=== PATIENT | male | born 1950 | race Caucasian/White ===

== ENCOUNTER → 2023-06-20 12:47 | Outpatient (REF) | payer MEDICARE, OTHER, SELFPAY | LOC: DHCBC MAIN 12:47 | PROVIDERS: ATTENDING PHYSICIAN Internal Medicine Cardiovascular Disease; FAMILY PHYSICIAN Family Medicine | DX: I25.10 Atherosclerotic heart disease of native coronary artery without angina pectoris (principal) | CPT/HCPCS: 93306 ==

== ENCOUNTER 2023-08-06 14:41 | Emergency (ER) | payer MEDICARE, OTHER, SELFPAY ==
[2023-08-06 14:55] VITALS: BP 134/76
[2023-08-06 14:58] VITALS: BMI 37.5
--- NOTE | 2023-08-06 15:59 | ED.GENMED ---
History of Present Illness
General
Chief Complaint: Back Pain
Source: patient
Time Seen by Provider: 08/06/23 15:39
Travel History
Have you had any contact with someone who has COVID-19?: No
Do you have any symptoms of coronavirus? Fever > 100 degrees, chills, cough, shortness of breath, sore throat, loss of taste or smell, muscle aches, or headache?: No
History of Present Illness
History of Present Illness:
73-year-old male with past medical history of atrial fibrillation, hypertension, CAD and status post pacemaker placement presenting to the emergency department for evaluation after he had a fall about 2 weeks ago, seen in this emergency department,
but due to continued right-sided back pain came back to the ER today for further evaluation. Patient notes that they x-rayed his chest and wrist and does not believe his back was hurting him as much at the time. He states pain is mainly along the
right lower back and will travel down his right leg sometimes sharp shooting sensation. Currently patient states his pain is much improved while laying down and at rest. He denies any bladder or bowel incontinence, saddle anesthesia, focal
weakness or numbness, long-term corticosteroid use, fevers or any other concerns
Past History
Past History
ED Past Medical History: CAD, Valvular disease and Other (Aortic valve replacement, atrial flutter, atrial fibrillation, hypertension, BPH)
ED Past Surgical History: Cardiac
Social History
Tobacco: Former smoker
Alcohol: None
Drug: None
Personal:
Living: with family
Employment: Other
Family History
Family History: Hypertension
Review of Systems
Review of Systems
All Other Systems: ROS reviewed and negative except as documented in HPI and ROS
Phy Exam
Physical Exam
Physical Exam:
GENERAL: Alert , in no apparent distress
EYE: clear conjunctiva b/l
NECK: Supple
ENT: mmm.
CARDIAC: Regular rate and rhythm .
LUNGS: Clear breath sounds bilaterally, no acute respiratory distress, no wheezes/rales/rhonchi
ABDOMEN: Soft, without focal tenderness, no r/g, no cvat
BACK: limited range of motion 2/2 pain, no focal tenderness, no midline bony tenderness, no rashes
NEUROLOGICAL: Alert and oriented, no focal neuro deficits. , sensation grossly intact and equal to light touch bilateral lower extremities
SKIN: Warm and dry, skin intact.
MUSCULOSKELETAL: No edema, well perfused. EHL intact bilaterally
PSYCH: Normal and appropriate interaction.
Scores
Heart Failure Risk
Heart Failure Risk Score: Not Applicable
Heart Score for Chest Pain Patients
STEMI patient?: Not applicable
Withdrawal Assessment of Alcohol
Withdrawal Assessment Completed?: Not applicable
Course
Orders/Labs/Results
Orders:
Orders
08/06/23 15:53
CR Lumbar Spine Comp Min 4 Vw* Urgent
Comment:
Reason For Exam: right sided lower back pain
08/06/23 17:05
Urinalysis Reflex To Culture Urgent
Date Specimen was Collected: 08/06/23
Time Specimen was Collected: 17:04
Urine Microscopic Reflex Cult Urgent
08/06/23 17:39
Baclofen [Lioresal] 10 mg PO NOW STA
Abnormal Lab Results
08/06/23
17:05
Ur Occult Blood Reflex Trace A
(Negative)
Leukocyte Esterase Rfl Trace A
(Negative)
Urine Bacteria (Reflex) Few A
(Negative)
Vital Signs
Initial and Last Documented VS:
Initial Vital Signs
Temp Pulse Resp BP Pulse Ox
98.3 F 56 18 134/76 94
08/06/23 14:55 08/06/23 14:55 08/06/23 14:55 08/06/23 14:55 08/06/23 14:55
Last Documented Vital Signs
Temp Pulse Resp BP Pulse Ox
98.3 F 58 18 128/68 94
08/06/23 14:55 08/06/23 18:35 08/06/23 18:35 08/06/23 18:35 08/06/23 18:35
MDM/Problems Addressed
Differential Diagnosis Includes:
Lumbar strain, contusion, sciatica, compression fracture
MDM/Problems Addressed:
73-year-old male presenting to the emergency department for evaluation of right-sided lower back pain that is been ongoing since a fall about 2 weeks ago. On record review patient came to this emergency department on July 07 so this fall occurred
almost a month ago. No x-rays were done of the lower back. he has no acute neurologic signs or symptoms today. He does note that he uses a walker at home to help him ambulate. Will order x-ray for further evaluation. Reassessment following
*Radiology
Radiology exam reviewed: preliminary read by ED provider (Significant degenerative changes with possible compression fracture at L3)
*Pulse Oximetry
Patient hypoxic: no
*Critical Care Note
Total Time (30-74mins, 75-104mins- exclusive of procedures): Not Applicable
Data Reviewed
Review of Other/Old Records Reveals: Records
Source: patient
Patient Management
Escalation/DeEscalation of care consider admission/obs:
Patient's x-ray shows significant degenerative changes with possible compression fracture at L3. There is also significant degeneration at L5. Patient's caregiver is now at the bedside and stating that over the last few weeks patient has had a
foul smell and erythema to the glans penis and notes that he is not circumcised and is concerned for infection. Due to patient being in hallway I am unable to evaluate the area but will treat for balanitis with topical clotrimazole. Encourage
close urology follow-up. Baclofen prescription given. Patient will follow-up with primary care provider.
ED Attending Note
-
Portions of this chart may have been created with voice recognition software.� Occasional wrong word or��sound alike� substitutions may have occurred due to the inherent limitations of voice recognition software.
Discharge Plan
Departure
Patient Disposition: Home (Routine Discharge)
Date of Disposition: 08/06/23
Time of Disposition: 17:39
Patient with high blood pressure during this ER visit?: No
Discharge Problem:
Low back pain
Instructions: Low Back Pain (DC)
Prescriptions:
New
baclofen 10 mg tablet
10 mg PO BID PRN (Reason: muscle spasm) Qty: 8 0RF
clotrimazole 1 % cream
1 applic topical BID 28 Days Qty: 30 0RF
No Action
hydrochlorothiazide 25 MG tablet
12.5 mg PO DAILY
multivitamin [Daily Vitamin] 1 EACH tablet
1 tab PO DAILY
metoprolol succinate 100 MG tablet extended release 24 hr
100 mg PO DAILY
tamsulosin 0.4 MG capsule
0.4 mg PO DAILY
warfarin [Jantoven] 5 MG tablet
7.5 mg PO TUFR
clopidogrel 75 MG tablet
75 mg PO DAILY Qty: 90 5RF
atorvastatin 40 MG tablet
40 mg PO QPM Qty: 90 10RF
nitroglycerin 0.4 MG tablet, sublingual
0.4 mg sublingual [id number] PRN (Reason: chest pain) Qty: 25 5RF
enalapril maleate 10 MG tablet
10 mg PO DAILY Qty: 0 0RF
aspirin 81 MG tablet,delayed release (DR/EC)
81 mg PO DAILY Qty: 0 0RF
Rx Instructions:
Stop After INR greater than 2.0
warfarin [Jantoven] 5 MG tablet
5 mg PO SUMOWETHSA Qty: 0 0RF
Rx Instructions:
Take double your dose tonight 07/14
Referrals:
Darlene Brooks MD [Family Provider] -
Interventions
Interventions:
*Nursing Disposition Last Done: 08/06/23 18:37
ED-Musculoskeletal Assessment Last Done: 08/06/23 14:58
Discharge Date and Time
Discharge Date/Time: 08/06/23 18:37
Print Language: GABONESE
[2023-08-06 17:15] LABS: Urine Albumin Negative (Neg - Trace); Urine Bilirubin Negative (Negative); Urine Character Clear (Clear); Urine Color Yellow; Urine Glucose Negative (Negative); Urine Ketone Negative (Negative); Urine Leukocyte Trace (Negative); Urine Nitrite Negative (Negative); Urine Occult Blood Trace (Negative); Urine Urobilinogen Negative (Neg - 1+)
[2023-08-06 17:21] LABS: Urine Bacteria Few (Negative); Urine Red Blood Cell 0-2 /HPF (0-2)
[2023-08-06] MEDS: LIORESAL 10 MG PO (18:01)
[2023-08-06 18:35] VITALS: BP 128/68
== END 2023-08-06 18:37 | disposition home or self-care (01) ==
LOC: EMR 14:41
PROVIDERS: Physician Assistant Medical; EMERGENCY PHYSICIAN Emergency Medicine; FAMILY PHYSICIAN Family Medicine
DX: M54.50 Low back pain, unspecified (principal); I48.91 Unspecified atrial fibrillation; I10 Essential (primary) hypertension; I25.10 Atherosclerotic heart disease of native coronary artery without angina pectoris; Z95.0 Presence of cardiac pacemaker; I38 Endocarditis, valve unspecified; I48.92 Unspecified atrial flutter; N40.0 Benign prostatic hyperplasia without lower urinary tract symptoms; Z95.2 Presence of prosthetic heart valve
CPT/HCPCS: 99283; 72110; 81003; 81015

== ENCOUNTER → 2023-10-23 14:29 | Outpatient (REF) | payer MEDICARE, OTHER, SELFPAY ==
[2023-10-23 15:06] LABS: % Basophils 0.6 % (0-2); % Eosinophils 3.3 % (0-6); % Immature Granulocytes 0.2 % (0-0.5); % Lymphocytes 12.5 % (20.5-51.1); % Monocytes 12.1 % (1.7-9.3); % Neutrophils 71.3 % (42.2-75.2); Absolute Eosinophils 0.2 10^3/uL (0-0.7); Absolute Lymphocytes 0.7 10^3/uL (1.2-3.4); Absolute Monocytes 0.6 10^3/uL (0.1-0.6); Absolute Neutrophils 3.7 10^3/uL (1.4-6.5); Hematocrit 41.6 % (39.0-52.0); Hemoglobin 13.8 g/dL (13.0-18.0); Mean Corp Hgb Conc. 33.2 g/dL (33.0-37.0); Mean Corpuscular Hgb 29.4 pg (27.0-31.0); Mean Corpuscular Volume 88.5 fL (80.0-94.0); Mean Platelet Volume 9.7 fL (7.4-10.4); Nucleated Red Blood Cells % 0 % (-); Platelet Count 158 10^3/uL (130-400); Red Cell Dist. Width 15.2 % (11.5-14.5); White Blood Cell Count 5.2 10^3/uL (4.8-10.8)
[2023-10-23 15:22] LABS: ALT (SGPT) 43 U/L (0-50); AST (SGOT) 48 U/L (17-59); Albumin 4.4 g/dl (3.5-5.0); Alkaline Phosphatase 83 U/L (38-126); Blood Urea Nitrogen 54 mg/dl (9-20); Calcium 9.3 mg/dl (8.4-10.2); Carbon Dioxide 19 mmol/L (22-30); Chloride 108 mmol/L (98-107); Glucose 103 mg/dl (70-99); Potassium 5.3 mmol/L (3.5-5.1); Sodium 140 mmol/L (135-145); eGFR 52.74
== END ==
LOC: REG 14:29
PROVIDERS: ATTENDING PHYSICIAN Physician Assistant; FAMILY PHYSICIAN Family Medicine; REFERRING PHYSICIAN Internal Medicine Cardiovascular Disease
DX: I95.9 Hypotension, unspecified (principal); R42 Dizziness and giddiness; R00.1 Bradycardia, unspecified
CPT/HCPCS: 36415; 80053; 85025

== ENCOUNTER → 2023-11-15 13:04 | Outpatient (REF) | payer MEDICARE, OTHER, SELFPAY | LOC: RCS 13:04 | PROVIDERS: ATTENDING PHYSICIAN Internal Medicine Cardiovascular Disease; FAMILY PHYSICIAN Family Medicine | DX: I50.20 Unspecified systolic (congestive) heart failure (principal); I48.0 Paroxysmal atrial fibrillation; I25.119 Atherosclerotic heart disease of native coronary artery with unspecified angina pectoris; M25.562 Pain in left knee | CPT/HCPCS: 73564; 93307; Q9957 ==

== ENCOUNTER 2023-12-22 10:52 | Day surgery (SDC) | payer MEDICARE, OTHER, SELFPAY ==
[2023-12-06 13:39] VITALS: BMI 36.0
[2023-12-22] VITALS (14 sets, daily range): BP systolic 101–136; BP diastolic 56–74; BMI 33.7
[2023-12-22] MEDS: VANCOCIN 300 ML IV (12:57)
[2023-12-22] MEDS: VANCOCIN 300 MG IV (12:57)
[2023-12-22 14:14] LABS: INR 1.79; PT 20.7 Sec (11.4-14.6)
--- NOTE | 2023-12-22 17:07 | ITS.CL.ICD ---
Addendum entered and electronically signed by Claudio Castaneda MD 01/16/24 14:13:
-
Addendum: I was asked to comment on the nature of the patient's cardiomyopathy. The patient has had a prior mechanical aortic valve replacement. He has had an LAD stent placed for coronary artery disease with symptoms. He has had a recent Cardiac
stress PET scan revealing no evidence of infarction or ischemia. The left ventricle is dilated. The patient has a dilated nonischemic cardiomyopathy. The nature of the etiology of the nonischemic cardiomyopathy is uncertain and might be related
to valvular heart disease but other etiologies are possible.
Addendum entered and electronically signed by Claudio Castaneda MD 12/23/23 08:30:
Total IV contrast 45 mL including left upper extremity venogram and coronary sinus venography.
Original Note:
Hygiene Coordinator - ICD
Implantable Cardioverter Defibrillator
Procedure Report:
Date of Procedure: December 22, 2023.
Procedures: Upgrade from a dual chamber pacemaker to a dual chamber ICD. Unsuccessful resynchronization lead placement.
Indication: Primary prevention ICD and sick sinus syndrome. Heart failure class 2 to 3. The patient's life expectancy exceeds one year. The patient was on maximally tolerated guideline directed therapy. Paroxysmal AFib. 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
a LAFB and just over 40% RV apical pacing.
Implanting physician: Claudio Castaneda M.D.
Implants:
Pulse Generator: Medtronic; Model# [id number]; Serial# [id number].
Ventricular Lead: Medtronic; Model# 6935M-62cm; Serial# [id number].
Retained RA lead (placed 09/16/2014): Medtronic; Model# 5076-52cm; Serial# [id number].
Capped/reusable RV pacing lead (placed 09/16/2014): RV Lead: Medtronic; Model# 5076-58cm; Serial# [id number].
Explanted pacemaker pulse generator (placed 09/16/2014): Medtronic; Model# [id number]; Serial# [id number].
Technique: A time out was performed. A 10 mL left upper extremity venogram demonstrated a patent left axiliary, cephalic and subclavian veins. The procedure site was identified. The patient was anesthetized by the anesthesia service. Preoperative
vancomycin and aztreonam was administered. The patient was prepped and draped in the usual fashion. Local anesthetic was applied to the left prepectoral subcutaneous tissue. A 3 inch incision was made along the left deltopectoral groove. Dissection
was carried to the fascia. The left cephalic vein was easily isolated and proximal and distal control with 2-0 Vicryl suture. Using a micropuncture needle to access the cephalic vein under direct visualization a wire was advanced into the central
circulation. A 9 Fr introducer was placed to allow a second 0.35 J wires to be advanced. The leads were introduced with hemostatic peel away introducer sheaths. The ventricular lead was placed at the right ventricular mid septum. The ventricular
lead was secured to the pectoralis muscle and fascia with two 0-silk sutures. The CS was cannulated with an Attain MP catheter and a lateral vein was found but the thresholds were above 5 Volts. No other target was found. A conduction lead was
advanced through a VISup His delivery catheter ([id number]) but successful left bundle area capture could not be achieved. The patient's blood pressure was requiring additional support and I felt the risks to the patient of continued efforts of
achieving conduction pacing exceed the potential benefits. I elected to move to a dual chamber ICD. The pacer pocket was entered from the new incision and the pacemaker was explanted. During removal of the pacemaker a pocket was created for the ICD.
The RV pacing lead was capped and secured with 0-silk sutures. 8 volt pacing did not capture the diaphragm. The leads were appropriately attached to the device. The pocket was irrigated with antibiotic solution. The device and leads were placed in
the pocket. A figure of 8 suture with Vicryl was required to control brisk cephalic vein back bleeding. A CareSimplytronic Tyrx absorbable antibiotic envelope (Ref [id number]; Lot [id number]). The incision was closed in three layers with absorbable suture.
Steri-strips and an Aquacel dressing were placed. Estimated blood loss was 75 ml all from cephalic vein back bleeding. There were no complications. Fluoroscopy: 13.9 minutes and DAP 10.8 GyCM2. The device was then interrogated after skin closure.
Defibrillation threshold testing was not performed.
Observation: PAF confirmed. The patient arrived in AFib/Flutter and converted to sinus near the end of the procedure.
Device Testing:
RA lead: sinus P: 0.4 and AFib about 0.4 mV; Threshold: 1.5 V @ 0.4 ms; Impedance: 438 ohms.
RV lead: R: 5.4 mV; Threshold: 0.5 V @ 0.4 ms; Impedance: 532 ohms.
Final Programming: Tachy: VT/VF 188 bpm; Tony: AAI to DDD (MVP) 50-130 bpm,
Conclusions: Uncomplicated upgrade from a dual chamber pacemaker to a dual chamber ICD. Unsuccessful resynchronization lead placement.
Recommendations: Routine post ICD care.
cc: Carol Harvey MD and Darlene Brooks MD.
[2023-12-22] MEDS: LASIX 20 MG IV (17:53)
[2023-12-22] MEDS: FLUSH (NSS) 1 FLUSH IV (17:54)
--- NOTE | 2023-12-22 18:01 | PTCARENOTE ---
patient arrived from [employer], very drowsy but easily aroused, able to answer all questions appropriately. LCW intact, pressure dsg. intact with immobilizer in place. monitor shows paced rhythmn, VSS. took off nonrebreather mask and replaced with
4LNC, o2 sat remains at 100%. 20 IV lasix given as ordered.
[2023-12-22] MEDS: LIPITOR 40 MG PO (18:42)
[2023-12-22] MEDS: COUMADIN 5 MG PO (18:42)
[2023-12-22] MEDS: VANCOCIN 200 IV (21:28)
[2023-12-22] MEDS: TYLENOL 650 MG PO (23:34)
[2023-12-23] VITALS (7 sets, daily range): BP systolic 91–120; BP diastolic 53–72
[2023-12-23] MEDS: TYLENOL 650 MG PO ×2 (04:22→09:25)
[2023-12-23 04:53] LABS: Hematocrit 40.3 % (39.0-52.0); Hemoglobin 13.3 g/dL (13.0-18.0); Mean Corpuscular Hgb 29.9 pg (27.0-31.0); Mean Corpuscular Volume 90.6 fL (80.0-94.0); Mean Platelet Volume 9.2 fL (7.4-10.4); Platelet Count 149 10^3/uL (130-400); Red Blood Cell Count 4.45 10^6/uL (4.70-6.10); Red Cell Dist. Width 14.3 % (11.5-14.5); White Blood Cell Count 9.3 10^3/uL (4.8-10.8)
[2023-12-23 05:05] LABS: INR 1.59; PT 18.8 Sec (11.4-14.6)
[2023-12-23 05:16] LABS: Blood Urea Nitrogen 22 mg/dl (9-20); Calcium 8.9 mg/dl (8.4-10.2); Carbon Dioxide 23 mmol/L (22-30); Chloride 107 mmol/L (98-107); Estimated Creatinine Clearance 91 ml/min; Glucose 101 mg/dl (70-99); Potassium 4.5 mmol/L (3.5-5.1); Sodium 140 mmol/L (135-145); eGFR > 60.00
--- NOTE | 2023-12-23 08:19 | PTCARENOTE ---
Pt's urinal spilled in bed, mod amt urine
[2023-12-23] MEDS: FLOMAX 0.4 MG PO (08:39)
[2023-12-23] MEDS: LOW STRENGTH ASPIRIN 81 MG PO (08:40)
--- NOTE | 2023-12-23 08:53 | W.PN.CD ---
Addendum entered and electronically signed by Claudio Castaneda MD 12/23/23 09:57:
I saw and examined the patient.
The SUPERVISORY TRAINING SPECIALIST's note was reviewed and I agree with the note.
Comment: ICD site is perfect. Pressure dressing reapplied and plan 24 more hours. CXR/EKG good. Ready for home. Meds advanced. More med adjustment as OP.
Original Note:
Today's Communication / Plan
-
Pressure dressing for 24 more hours- Dr. Castaneda to redress this AM
Home today with addition of Aldactone 12.5 mg daily and Lasix 20 mg MWF
INR and BMP in one week
Incision check visit arranged
Impression / Plan
-
s/p upgrade from a dual chamber pacemaker to a dual chamber ICD (Unsuccessful resynchronization lead placement):
-left chest site with intact pressure dressing- Dr. Castaneda to redress this AM- leave on for 24 more hours
-we reviewed activity restrictions and site care, follow-up in office arranged
Mechanical AVR:
-INR subtherapeutic since he held 2 doses warfarin for procedure
-continue warfarin 5 mg daily and repeat INR in 1 about 1 week
HFrEF: chronic
-he received a dose of IV Lasix
-continue Entresto and metoprolol
-add Lasix 20 mg MWF and Aldactone 12.5 mg daily
-labs in about 1 week
PAF:
-in SR, on warfarin
-continue metoprolol
CAD:
-stable
-continue ASA, statin, and BB
Subjective:
-denies SOB. Not much pain to procedure site. Had issue with urinating last night s/p anesthesia, but now resolved.
Physical Exam
Vital Signs/Labs
Vital Signs
Temp Pulse Resp BP Pulse Ox
97.8 F 60 16 108/64 98
12/23/23 07:01 12/23/23 04:11 12/23/23 07:01 12/23/23 04:11 12/23/23 07:01
12/22/23 12/23/23 12/24/23
06:59 06:59 06:59
Actual Weight 122.47 kg
12/23/23 04:17
12/23/23 04:17
PT 18.8 Sec (11.4-14.6) H 12/23/23 04:17
INR 1.59 12/23/23 04:17
Physical Exam
Constitutional: No acute distress
EENT: Anicteric
Cardiovascular: Rhythm & rate is regular and Pedal edema present (mild BLE edema)
Respiratory: Respiratory effort normal and Lungs clear to auscul.
Neuro/Psych: AO x 3
Other: Skin (left chest site dressing intact)
Data Reviewed
-
Date of Service: December 23, 2023
EKG: Other (Apaced PVC's)
X-Ray/CT/US/MRI/NUC/PET: Report Reviewed by me (no pneumo)
Labs: Labs Reviewed by me
[2023-12-23] MEDS: PERCOCET 5/325 1 TABLET PO (10:14)
--- NOTE | 2023-12-23 10:20 | PTCARENOTE ---
L cw pressure dressing D+I. Dr Castaneda came to see Pt. Pt c/o pain, med with Tylenol 650 mg with no relief. Pt med with Percocet 1 tab po as ordered for mod pain.
--- NOTE | 2023-12-23 12:46 | W.DS.TRANS ---
DC Summary - Cutter Hand
-
Discharge Instructions:
Sleep Apnea Risk Intermediate
Discharge Diagnosis/Procedures Cardiac device upgrade from pacemaker to ICD,
HFrEF
Diet Low Cholesterol,2 Gram Sodium,Restrict fluids to
48 oz,Low Fat
Activity No strenuous activity
Additional Activity See attached instructions
Driving Restrictions No driving for 1 week
Bathing Restrictions OK to Shower
Blood Work INR and BMP 5-6 days- slip to be given at d/c.
Sent to [place] [facility]- if it needs to go
elsewhere please call cardiology office.
Specialty Instructions Weigh Daily
Instructions:
Stand-Alone Forms: DC Inst - Implanted Device
Changes to Home Medications: Yes
Discharge Medications:
DC Medications w/original date entered in [employer]
metoprolol succinate 100 mg tablet,extended release 24 hr 50 mg PO QPM Heart Disease/Condition 07/14/21
nitroglycerin 0.4 mg sublingual tablet 0.4 mg sublingual [id number] PRN chest pain #25 tabs 07/14/21
tamsulosin 0.4 mg capsule 0.4 mg PO QPM 07/14/21
Black Elderberry Gummies 2 tab PO DAILY 12/01/23
acetaminophen 500 mg tablet 1,000 mg PO DAILY 12/01/23
coQ10 (ubiquinol) 100 mg capsule 100 mg PO DAILY 12/01/23
gabapentin 100 mg capsule 100 mg PO PRN PRN pain 12/01/23
melatonin 5 mg tablet 5 mg PO HS PRN sleep 12/01/23
multivitamin with minerals-folic acid 200 mcg chewable tablet (Multivitamin Gummies) 2 tab PO DAILY Supplement 12/01/23
sacubitril 49 mg-valsartan 51 mg tablet (Entresto) 1 tab PO BID Heart Disease/Condition 12/01/23
warfarin 5 mg tablet (Jantoven) 5 mg PO DAILY Blood Clot Prevention/Tx 12/01/23
aspirin 81 mg tablet,delayed release 81 mg PO DAILY Blood Clot Prevention/Tx #0 tabs 12/23/23
atorvastatin 40 mg tablet 40 mg PO QPM High Cholesterol 12/23/23
furosemide 20 mg tablet (Lasix) 20 mg PO .three times per week #12 tabs 12/23/23
spironolactone 25 mg tablet (Aldactone) 12.5 mg (1/2 x 25 mg) PO DAILY #15 tabs 12/23/23
Home Medication Changes
added aldactone and furosemide
Pending Results: No
--- NOTE | 2023-12-23 13:01 | PTCARENOTE ---
Pt had lunch, he reports feeling much better now, denies lightheadedness.
--- NOTE | 2023-12-23 15:25 | PTCARENOTE ---
Pt walking around room with quad cane, denies any further lightheadedness or dizziness. Pt discharge instructions reviewed with him and his caregiver. Pt discharged to home.
== END 2023-12-23 15:35 | disposition home or self-care (01) ==
LOC: CATH 10:52
PROVIDERS: ATTENDING PHYSICIAN Internal Medicine Cardiovascular Disease; FAMILY PHYSICIAN Family Medicine
DX: I50.22 Chronic systolic (congestive) heart failure (principal); I11.0 Hypertensive heart disease with heart failure; I42.0 Dilated cardiomyopathy; I48.19 Other persistent atrial fibrillation; I49.5 Sick sinus syndrome; I48.92 Unspecified atrial flutter; I25.10 Atherosclerotic heart disease of native coronary artery without angina pectoris; E78.5 Hyperlipidemia, unspecified; E66.9 Obesity, unspecified; Z68.36 Body mass index [BMI] 36.0-36.9, adult; N40.0 Benign prostatic hyperplasia without lower urinary tract symptoms; M19.90 Unspecified osteoarthritis, unspecified site; M48.00 Spinal stenosis, site unspecified; M54.10 Radiculopathy, site unspecified; Z95.2 Presence of prosthetic heart valve; Z79.899 Other long term (current) drug therapy; Z95.0 Presence of cardiac pacemaker; I45.2 Bifascicular block; Z87.891 Personal history of nicotine dependence; Z88.0 Allergy status to penicillin; Z95.5 Presence of coronary angioplasty implant and graft; Z79.82 Long term (current) use of aspirin; Z79.01 Long term (current) use of anticoagulants
CPT/HCPCS: 33249; 33233; 71045; 80048; 85027; 85610; 93005; C1721; C1769; C1777; C1887; C1892; C1898; C1900; Q9967

== ENCOUNTER 2024-01-04 01:58 | Emergency (ER) | payer MEDICARE, OTHER, SELFPAY ==
[2024-01-04 02:01] VITALS: BP 120/67
--- NOTE | 2024-01-04 02:13 | ED.GENMED ---
History of Present Illness
<BHAVANI Perrin - Last Filed: 01/04/24 06:33>
General
Chief Complaint: Urinary Symptoms
Source: patient
Time Seen by Provider: 01/04/24 02:13
Nursing documentation reviewed up to this point in time: agreed with except (Patient has not urinated since 2 PM yesterday)
History of Present Illness
History of Present Illness:
This is a pleasant 73-year-old male with a past medical history of CAD, A-fib, AICD implant, aortic valve replacement, HTN, BPH, anxiety, presents to the emergency department for urinary retention x 12 hours. Patient states that as of 2 PM
yesterday he suddenly stopped being able to urinate which has led to suprapubic fullness and tenderness to palpation. He admits to 1 previous episode of urinary retention on 12/22/2023 shortly after his a ICD placement to which symptoms resolved
after straight urinary catheterization. Patient admits to postoperative intermittent constipation. He admits to attempting manual disimpaction over the last 3 days to no avail. Patient denies chest pain, shortness of breath, nausea, vomiting,
headache.
Past History
<BHAVANI Perrin - Last Filed: 01/04/24 06:33>
Past History
ED Past Medical History: CAD, Valvular disease and Other (Aortic valve replacement, atrial flutter, atrial fibrillation, hypertension, BPH)
ED Past Surgical History: Cardiac
Social History
Tobacco: Former smoker
Alcohol: None
Drug: None
Personal:
Living: with family
Employment: Other
Family History
Family History: Hypertension
Phy Exam
<BHAVANI Perrin - Last Filed: 01/04/24 06:33>
General Physical Exam
General Presentation: well appearing and no apparent distress
General age: appears stated age
General Skin: warm
General Habitus: elderly and obese
General Mental: alert
General Hydration: appears well hydrated
Eye Exam
Eye Exam: PERRL
Cardiovascular Exam
Cardiovascular Exam: regular rate/rhythm, no edema and normal peripheral pulses
Pulmonary Exam
Pulmonary Exam: lungs clear, no respiratory distress, no rales, no crackles and no cough
Gastrointestinal Exam
Gastrointestinal Exam: soft, non distended, abnormal bowel sounds (Hyperactive) and tender (Suprapubic)
Palpation: left upper quadrant: No tenderness, left lower quadrant: No tenderness, right upper quadrant: No tenderness and right lower quadrant: No tenderness
Neurological Exam
Neurological Exam: alert and oriented x3
Musculoskeletal Exam
Musculoskeletal Exam: full ROM
Skin Exam
Skin Exam: normal color, warm/dry and no rash
Psychiatric Exam
Psychiatric Exam: normal mood/affect
Course
<Biju Muniz, [facility] - Last Filed: 01/04/24 06:33>
Orders/Labs/Results
Orders:
Orders
01/04/24 02:36
Bladder Scan- Treatment ONCE
01/04/24 02:56
Bravo Placement- Treatment ONCE
Reason for insertion: Acute Retention
01/04/24 02:57
CR Obstruct Series W/pa Chest Urgent
Comment:
Reason For Exam: constipation, lower abd pain
01/04/24 04:22
Enema- Treatment ONCE
Type: Milk of Molasses
01/04/24 04:43
Urinalysis Reflex To Culture Urgent
Date Specimen was Collected: 01/04/24
Time Specimen was Collected: 04:19
Urine Microscopic Reflex Cult Urgent
Urine Culture Urgent
RONDA Source: U
Specimen Description:
Date Specimen was Collected: 01/04/24
Time Specimen was Collected: 04:19
01/04/24 05:37
Doxycycline [Vibramycin] 100 mg PO NOW STA
Abnormal Lab Results
01/04/24
04:43
Ur Occult Blood Reflex 4+ A
(Negative)
Urine RBC >100 A /HPF
(0-2)
Urine Bacteria (Reflex) Moderate A
(Negative)
Vital Signs
Initial and Last Documented VS:
Initial Vital Signs
Temp Pulse Resp BP Pulse Ox
98.5 F 71 26 120/67 97
01/04/24 02:01 01/04/24 02:01 01/04/24 02:01 01/04/24 02:01 01/04/24 02:01
Last Documented Vital Signs
Temp Pulse Resp BP Pulse Ox
98.5 F 71 26 120/67 97
01/04/24 02:01 01/04/24 02:01 01/04/24 02:01 01/04/24 02:01 01/04/24 02:01
<Mari Fraire, DO - Last Filed: 01/04/24 06:28>
Orders/Labs/Results
Orders:
Orders
01/04/24 02:36
Bladder Scan- Treatment ONCE
01/04/24 02:56
Bravo Placement- Treatment ONCE
Reason for insertion: Acute Retention
01/04/24 02:57
CR Obstruct Series W/pa Chest Urgent
Comment:
Reason For Exam: constipation, lower abd pain
01/04/24 04:22
Enema- Treatment ONCE
Type: Milk of Molasses
01/04/24 04:43
Urinalysis Reflex To Culture Urgent
Date Specimen was Collected: 01/04/24
Time Specimen was Collected: 04:19
Urine Microscopic Reflex Cult Urgent
Urine Culture Urgent
RONDA Source: U
Specimen Description:
Date Specimen was Collected: 01/04/24
Time Specimen was Collected: 04:19
01/04/24 05:37
Doxycycline [Vibramycin] 100 mg PO NOW STA
Abnormal Lab Results
01/04/24
04:43
Ur Occult Blood Reflex 4+ A
(Negative)
Urine RBC >100 A /HPF
(0-2)
Urine Bacteria (Reflex) Moderate A
(Negative)
Vital Signs
Initial and Last Documented VS:
Initial Vital Signs
Temp Pulse Resp BP Pulse Ox
98.5 F 71 26 120/67 97
01/04/24 02:01 01/04/24 02:01 01/04/24 02:01 01/04/24 02:01 01/04/24 02:01
Last Documented Vital Signs
Temp Pulse Resp BP Pulse Ox
98.5 F 71 26 120/67 97
01/04/24 02:01 01/04/24 02:01 01/04/24 02:01 01/04/24 02:01 01/04/24 02:01
<BHAVANI Perrin - Last Filed: 01/04/24 06:33>
MDM/Problems Addressed
Differential Diagnosis Includes:
Urinary retention due to BPH, constipation, bladder stones
MDM/Problems Addressed:
Obstruction series demonstrated no bladder stones; however, moderate to severe amount of stool was noted in the distal part of rectum and sigmoid colon. This was the likely etiology of the urinary retention due to stool burden pressing on prostate,
thus causing postrenal obstruction.
<Mari Fraire DO - Last Filed: 01/04/24 06:28>
*Radiology
Radiology exam reviewed: preliminary read by ED provider (Obstruction series shows moderate stool within the rectum consistent with fecal impaction. No evidence of obstruction. Clear lung canseco.)
*Pulse Oximetry
Patient hypoxic: no
*Critical Care Note
Total Time (30-74mins, 75-104mins- exclusive of procedures): Not Applicable
ED Attending Note
<BHAVANI Perrin - Last Filed: 01/04/24 06:33>
-
Portions of this chart may have been created with voice recognition software.� Occasional wrong word or��sound alike� substitutions may have occurred due to the inherent limitations of voice recognition software.
<Mari Fraire DO - Last Filed: 01/04/24 06:28>
ED Attending Note
Patient seen and examined by attending physician: Yes
I performed the substantive portion of visit, reviewed & personally made and approve the management plan that is documented in note by myself or JELLY.: Yes
ED Attending Note:
This is a 73-year-old gentleman with history of atrial fibrillation, mechanical aortic valve replacement 2011 chronically maintained on Coumadin, history of chronic heart failure with reduced EF who underwent pacemaker upgrade to biventricular ICD
December 21. He did suffer acute urinary retention postoperatively requiring straight catheterization for what he states was 1000 cc urine output but did not require indwelling Bravo catheter. He has history of BPH chronically maintained on Flomax.
Upon discharge the following day December 22, Lasix 20 mg was added Monday/Monday/Monday along with Aldactone 12.5 mg daily.
He states with dietary changes, low-sodium diet and compliance with fluid restriction he has lost approximately 50 pounds over the past 3 months.
With initiation of diuretics 2 weeks ago patient has had issues with constipation, passing very hard stools and thus far no relief with a dose of prune juice and mineral oil yesterday. He states his last bowel movement was approximately 3 days ago.
This evening however he developed significant suprapubic discomfort with tremendous urinary urge and inability to void since early evening. Symptoms feel very similar to his acute urinary retention postoperatively December 21. He denies flank pain
or back pain, no nausea or vomiting, no fever nor chills. He has had no dysuria nor hematuria.
He does have a urologist but admits to lacking follow-up for at least a year. Prior to December 21, he has had no previous episodes of urinary retention.
GENERAL: 73-year-old obese gentleman appears his stated age, awake and alert, pleasant, appears in no acute distress.
EYE: anicteric
NECK: Supple, nontender, no JVD.
ENT: oral mucosa is moist. No rhinorrhea.
CARDIAC: Regular rate and rhythm. no murmur.
LUNGS: Clear breath sounds bilaterally, no acute respiratory distress, no wheezes/rales/rhonchi
ABDOMEN: Rotund, soft, nondistended, mild to moderate tenderness suprapubic region with palpably mildly distended bladder. No r/g, no cvat. normoactive BS.
NEUROLOGICAL: Alert and oriented x3, no focal neuro deficits.
SKIN: Warm and dry, mildly pale in color, skin intact. No rash.
MUSCULOSKELETAL: No clubbing or cyanosis, trace pretibial edema bilateral lower extremities, peripheral pulses are full and equal b/l. No palpable tenderness.
PSYCH: Normal and appropriate interaction.
Concern for acute urinary retention, concern for constipation. Concern for UTI.
Constipation may be cause for acute urinary retention and patient is certainly at risk for this with history of BPH.
Will check bladder scan and will plan for Bravo catheter to empty the bladder and then we will plan for obstruction series to assess for fecal impaction/constipation.
Will check urinalysis assess for potential UTI.
01/04/2024 0337 AM
Bravo catheter placed by nursing staff without difficulty. Initial output 800 cc dark elinor urine.
Patient reports significant relief of suprapubic discomfort and urinary urgency.
Awaiting obstruction series.
01/04/2024 0422 am
Obstruction series shows moderate stool burden in the rectum consistent with fecal impaction. No evidence obstruction. Clear lung canseco.
Will plan for milk of molasses enema to clear fecal impaction.
01/04/2024 0622 AM
Patient has had success after enema. Has passed a large firm to soft bowel movement.
Overall feeling markedly improved with no further rectal nor suprapubic discomfort/pressure.
Urinalysis shows moderate bacteria but only 3-5 WBCs, not consistent with UTI. Greater than 100 RBCs. He is maintained on Coumadin. No flank pain. Nothing to suggest ureteral stone.
Due to urethral manipulation/Bravo catheter placement patient has been given a one-time dose of doxycycline.
I do suspect that acute urinary retention was related to fecal impaction and now that that is cleared we will plan to DC Bravo catheter and discharge to home with recommendation for follow-up with his urologist, Dr. Hodges.
Continue daily tamsulosin.
Recommend he initiate a daily fiber supplement such as Benefiber, Metamucil for constipation.
Continue fluid restriction but recommend he discontinue furosemide. He had 1 dose left for tomorrow. Recommend he skip this last dose.
Return precautions discussed.
Discharge Plan
Departure
Patient Disposition: Home (Routine Discharge)
Date of Disposition: 01/04/24
Time of Disposition: 06:24
Patient with high blood pressure during this ER visit?: No
Condition: Good
Discharge Problem:
Acute urinary retention, Fecal impaction in rectum
Instructions: Fecal Impaction (DC), Constipation, Adult ED, Urinary retention
Prescriptions:
No Action
metoprolol succinate 100 MG tablet extended release 24 hr
50 mg PO QPM
tamsulosin 0.4 MG capsule
0.4 mg PO QPM
nitroglycerin 0.4 MG tablet, sublingual
0.4 mg sublingual [id number] PRN (Reason: chest pain) Qty: 25 5RF
acetaminophen 500 mg Tablet
1,000 mg PO DAILY
gabapentin 100 mg Capsule
100 mg PO PRN PRN (Reason: pain)
melatonin 5 mg Tablet
5 mg PO HS PRN (Reason: sleep)
multivit with min-folic acid [Multivitamin Gummies] 200 mcg Tablet,Chewable
2 tab PO DAILY
coQ10 (ubiquinol) 100 mg Capsule
100 mg PO DAILY
Entresto 49-51 mg Tablet
1 tab PO BID
Black Elderberry Gummies
2 tab PO DAILY
warfarin [Jantoven] 5 MG tablet
5 mg PO DAILY
atorvastatin 40 MG tablet
40 mg PO QPM
furosemide [Lasix] 20 mg tablet
20 mg PO .three times per week Qty: 12 3RF
Rx Instructions:
Monday, Monday, and Monday
spironolactone [Aldactone] 25 mg tablet
12.5 mg PO DAILY Qty: 15 3RF
aspirin 81 MG tablet,delayed release (/EC)
81 mg PO DAILY Qty: 0 0RF
Referrals:
Franky Hodges MD [Active] - Call in 1-3 days for appt
Darlene Brooks MD [Family Provider] - Call in 1-3 days for appt
Activity Restrictions/Additional Instructions:
Continue your daily fluid restriction but recommend you hold off on that last dose of furosemide that you scheduled for tomorrow.
Continue daily tamsulosin.
For constipation, recommend you start a daily fiber supplement such as Metamucil or Benefiber, continue this on a daily basis.
Follow-up with urologist, Dr. Figueroa, for further evaluation and recommend follow-up with your primary care physician as well.
If urinary retention recurs, prompt return to the ED for further evaluation.
Interventions
Interventions:
*Risk Screen - Suicide Last Done: 01/04/24 02:01
Discharge Date and Time
Print Language: [id number]
[2024-01-04 04:57] LABS: Urine Albumin Trace (Neg - Trace); Urine Bilirubin Negative (Negative); Urine Character Slightly Cloudy (Clear); Urine Color Yellow; Urine Glucose Negative (Negative); Urine Ketone Negative (Negative); Urine Leukocyte Negative (Negative); Urine Nitrite Negative (Negative); Urine Occult Blood 4+ (Negative); Urine Urobilinogen Negative (Neg - 1+)
[2024-01-04 05:27] LABS: Urine Amorphous Seen; Urine Red Blood Cell >100 /HPF (0-2)
[2024-01-04 05:28] LABS: Urine Bacteria Moderate (Negative)
[2024-01-04 06:00] VITALS: BP 118/64
[2024-01-04] MEDS: VIBRAMYCIN 100 MG PO (06:38)
== END 2024-01-04 07:05 | disposition home or self-care (01) ==
LOC: EMR 01:58
PROVIDERS: EMERGENCY PHYSICIAN Emergency Medicine; FAMILY PHYSICIAN Family Medicine
DX: R33.9 Retention of urine, unspecified (principal); K56.41 Fecal impaction; I25.10 Atherosclerotic heart disease of native coronary artery without angina pectoris; I38 Endocarditis, valve unspecified; I48.91 Unspecified atrial fibrillation; I11.0 Hypertensive heart disease with heart failure; I50.9 Heart failure, unspecified; N40.1 Benign prostatic hyperplasia with lower urinary tract symptoms; Z79.01 Long term (current) use of anticoagulants; Z79.899 Other long term (current) drug therapy; Z82.49 Family history of ischemic heart disease and other diseases of the circulatory system; Z87.891 Personal history of nicotine dependence; Z95.2 Presence of prosthetic heart valve; Z95.810 Presence of automatic (implantable) cardiac defibrillator
CPT/HCPCS: 99283; 74022; 81003; 81015; 87086

== ENCOUNTER → 2024-01-22 12:09 | Outpatient (REF) | payer MEDICARE, OTHER, SELFPAY ==
[2024-01-22 14:06] LABS: INR 3.46; PT 34.6 Sec (11.4-14.6)
== END ==
LOC: REG 12:09
PROVIDERS: ATTENDING PHYSICIAN Internal Medicine Cardiovascular Disease; FAMILY PHYSICIAN Family Medicine
DX: I48.0 Paroxysmal atrial fibrillation (principal)
CPT/HCPCS: 36415; 85610

== ENCOUNTER → 2024-02-01 14:35 | Outpatient (REF) | payer MEDICARE, OTHER, SELFPAY ==
[2024-02-01 15:40] LABS: INR 3.13; PT 32.5 Sec (11.4-14.6)
== END ==
LOC: REG 14:35
PROVIDERS: ATTENDING PHYSICIAN Internal Medicine Cardiovascular Disease; FAMILY PHYSICIAN Family Medicine
DX: I48.0 Paroxysmal atrial fibrillation (principal)
CPT/HCPCS: 36415; 85610

== ENCOUNTER → 2024-02-08 13:21 | Outpatient (REF) | payer MEDICARE, OTHER, SELFPAY ==
[2024-02-08 14:25] LABS: INR 2.74; PT 29.4 Sec (11.4-14.6)
== END ==
LOC: REG 13:21
PROVIDERS: ATTENDING PHYSICIAN Internal Medicine Cardiovascular Disease; FAMILY PHYSICIAN Family Medicine
DX: I48.0 Paroxysmal atrial fibrillation (principal)
CPT/HCPCS: 36415; 85610

== ENCOUNTER → 2024-03-08 14:14 | Outpatient (REF) | payer MEDICARE, OTHER, SELFPAY ==
[2024-03-08 16:17] LABS: INR 1.73; PT 20.4 Sec (11.4-14.6)
== END ==
LOC: REG 14:14
PROVIDERS: ATTENDING PHYSICIAN Internal Medicine Cardiovascular Disease
DX: I48.0 Paroxysmal atrial fibrillation (principal)
CPT/HCPCS: 36415; 85610

== ENCOUNTER → 2024-03-13 14:05 | Outpatient (REF) | payer MEDICARE, OTHER, SELFPAY ==
[2024-03-13 14:51] LABS: INR 2.86; PT 30.4 Sec (11.4-14.6)
== END ==
LOC: REG 14:05
PROVIDERS: ATTENDING PHYSICIAN Internal Medicine Cardiovascular Disease; FAMILY PHYSICIAN Family Medicine
DX: Z95.2 Presence of prosthetic heart valve (principal); I48.0 Paroxysmal atrial fibrillation
CPT/HCPCS: 36415; 85610

== ENCOUNTER → 2024-03-18 14:35 | Outpatient (REF) | payer MEDICARE, OTHER, SELFPAY ==
[2024-03-18 16:01] LABS: INR 3.51
== END ==
LOC: REG 14:35
PROVIDERS: ATTENDING PHYSICIAN Internal Medicine Cardiovascular Disease; FAMILY PHYSICIAN Family Medicine
DX: Z95.2 Presence of prosthetic heart valve (principal); I48.0 Paroxysmal atrial fibrillation
CPT/HCPCS: 36415; 85610

== ENCOUNTER → 2024-03-25 12:52 | Outpatient (REF) | payer MEDICARE, OTHER, SELFPAY ==
[2024-03-25 14:08] LABS: INR 3.11; PT 31.9 Sec (11.4-14.6)
== END ==
LOC: REG 12:52
PROVIDERS: ATTENDING PHYSICIAN Internal Medicine Cardiovascular Disease
DX: Z95.2 Presence of prosthetic heart valve (principal); I48.0 Paroxysmal atrial fibrillation
CPT/HCPCS: 36415; 85610

== ENCOUNTER → 2024-04-02 11:53 | Outpatient (REF) | payer MEDICARE, OTHER, SELFPAY ==
[2024-04-02 14:33] LABS: Total Thyroxine 5.62 ug/dl (5.5-11.0)
[2024-04-02 14:46] LABS: TSH 0.92 uIU/ml (0.47-4.68)
[2024-04-02 15:22] LABS: Folate > 20.0 ng/ml (2.76-20); Vitamin B12 329 pg/ml (239-931)
== END ==
LOC: REG 11:53
PROVIDERS: ATTENDING PHYSICIAN Specialist; FAMILY PHYSICIAN Family Medicine
DX: G31.84 Mild cognitive impairment of uncertain or unknown etiology (principal); G30.1 Alzheimer's disease with late onset; E03.9 Hypothyroidism, unspecified; D51.8 Other vitamin B12 deficiency anemias
CPT/HCPCS: 36415; 82607; 82746; 84436; 84443

== ENCOUNTER → 2024-04-09 11:48 | Outpatient (REF) | payer MEDICARE, OTHER, SELFPAY | LOC: HWRAD 11:48 | PROVIDERS: ATTENDING PHYSICIAN Specialist; FAMILY PHYSICIAN Family Medicine | DX: G31.84 Mild cognitive impairment of uncertain or unknown etiology (principal) | CPT/HCPCS: 70450 ==

== ENCOUNTER → 2024-04-13 08:39 | Outpatient (REF) | payer MEDICARE, OTHER, SELFPAY ==
[2024-04-13 10:12] LABS: ALT (SGPT) 28 U/L (0-50); AST (SGOT) 33 U/L (17-59); Albumin 4.2 g/dl (3.5-5.0); Alkaline Phosphatase 83 U/L (38-126); Blood Urea Nitrogen 23 mg/dl (9-20); Calcium 9.4 mg/dl (8.4-10.2); Carbon Dioxide 25 mmol/L (22-30); Chloride 106 mmol/L (98-107); Glucose 112 mg/dl (70-99); HDL Cholesterol 37 mg/dl; LDL Cholesterol, Calculated 43 mg/dl; Potassium 4.5 mmol/L (3.5-5.1); Sodium 140 mmol/L (135-145); Total Bilirubin 1.2 mg/dl (0.2-1.3); Total Cholesterol 97 mg/dl (50-199); Total Protein 7.1 g/dl (6.3-8.2); Triglyceride 87 mg/dl (10-149); Very Low Density Lipoprotein 17 mg/dl (0-30); eGFR > 60.00
== END ==
LOC: REG 08:39
PROVIDERS: ATTENDING PHYSICIAN Family Medicine
DX: I48.0 Paroxysmal atrial fibrillation (principal); I10 Essential (primary) hypertension; E78.2 Mixed hyperlipidemia
CPT/HCPCS: 36415; 80053; 80061

== ENCOUNTER → 2024-04-16 11:13 | Outpatient (REF) | payer MEDICARE, OTHER, SELFPAY ==
[2024-04-16 12:17] LABS: INR 4.06
== END ==
LOC: REG 11:13
PROVIDERS: ATTENDING PHYSICIAN Internal Medicine Cardiovascular Disease; FAMILY PHYSICIAN Family Medicine
DX: Z95.2 Presence of prosthetic heart valve (principal)
CPT/HCPCS: 36415; 85610

== ENCOUNTER → 2024-04-24 13:59 | Outpatient (REF) | payer MEDICARE, OTHER, SELFPAY ==
[2024-04-24 14:59] LABS: INR 3.19
== END ==
LOC: REG 13:59
PROVIDERS: ATTENDING PHYSICIAN Obstetrics & Gynecology; FAMILY PHYSICIAN Family Medicine
DX: Z95.2 Presence of prosthetic heart valve (principal)
CPT/HCPCS: 36415; 85610

== ENCOUNTER → 2024-05-02 12:25 | Outpatient (REF) | payer MEDICARE, OTHER, SELFPAY ==
[2024-05-02 13:44] LABS: INR 3.33; PT 34.1 Sec (11.4-14.6)
== END ==
LOC: REG 12:25
PROVIDERS: ATTENDING PHYSICIAN Internal Medicine Cardiovascular Disease; FAMILY PHYSICIAN Family Medicine
DX: I48.0 Paroxysmal atrial fibrillation (principal)
CPT/HCPCS: 36415; 85610

== ENCOUNTER → 2024-05-08 11:49 | Outpatient (REF) | payer MEDICARE, OTHER, SELFPAY ==
[2024-05-08 13:09] LABS: INR 3.22; PT 33.2 Sec (11.4-14.6)
== END ==
LOC: REG 11:49
PROVIDERS: ATTENDING PHYSICIAN Internal Medicine Cardiovascular Disease; FAMILY PHYSICIAN Family Medicine
DX: I48.0 Paroxysmal atrial fibrillation (principal)
CPT/HCPCS: 36415; 85610

== ENCOUNTER → 2024-05-15 13:00 | Outpatient (REF) | payer MEDICARE, OTHER, SELFPAY ==
[2024-05-15 15:23] LABS: PT 31.5 Sec (11.4-14.6)
== END ==
LOC: REG 13:00
PROVIDERS: ATTENDING PHYSICIAN Internal Medicine Cardiovascular Disease
DX: I48.0 Paroxysmal atrial fibrillation (principal)
CPT/HCPCS: 36415; 85610

== ENCOUNTER → 2024-05-22 13:23 | Outpatient (REF) | payer MEDICARE, OTHER, SELFPAY ==
[2024-05-22 14:57] LABS: INR 3.03; PT 31.7 Sec (11.4-14.6)
== END ==
LOC: REG 13:23
PROVIDERS: ATTENDING PHYSICIAN Internal Medicine Cardiovascular Disease; FAMILY PHYSICIAN Family Medicine
DX: I48.0 Paroxysmal atrial fibrillation (principal)
CPT/HCPCS: 36415; 85610

== ENCOUNTER → 2024-06-24 12:01 | Outpatient (REF) | payer MEDICARE, OTHER, SELFPAY ==
[2024-06-24 13:53] LABS: INR 2.88; PT 30.1 Sec (11.4-14.6)
== END ==
LOC: REG 12:01
PROVIDERS: ATTENDING PHYSICIAN Internal Medicine Cardiovascular Disease; FAMILY PHYSICIAN Family Medicine
DX: I48.0 Paroxysmal atrial fibrillation (principal)
CPT/HCPCS: 36415; 85610

== ENCOUNTER → 2024-07-03 12:31 | Outpatient (REF) | payer MEDICARE, OTHER, SELFPAY ==
[2024-07-03 14:04] LABS: INR 3.36; PT 34.3 Sec (11.4-14.6)
== END ==
LOC: REG 12:31
PROVIDERS: ATTENDING PHYSICIAN Internal Medicine Cardiovascular Disease; FAMILY PHYSICIAN Family Medicine
DX: I48.0 Paroxysmal atrial fibrillation (principal)
CPT/HCPCS: 36415; 85610

== ENCOUNTER → 2024-07-23 12:56 | Outpatient (REF) | payer MEDICARE, OTHER, SELFPAY ==
[2024-07-23 13:48] LABS: INR 3.72; PT 36.5 Sec (11.4-14.6)
== END ==
LOC: REG 12:56
PROVIDERS: ATTENDING PHYSICIAN Internal Medicine Cardiovascular Disease; FAMILY PHYSICIAN Family Medicine
DX: I48.0 Paroxysmal atrial fibrillation (principal)
CPT/HCPCS: 36415; 85610

== ENCOUNTER → 2024-08-01 16:08 | Outpatient (REF) | payer MEDICARE, OTHER, SELFPAY ==
[2024-08-01 17:25] LABS: PT 38.4 Sec (11.4-14.6)
== END ==
LOC: REG 16:08
PROVIDERS: ATTENDING PHYSICIAN Internal Medicine Cardiovascular Disease; FAMILY PHYSICIAN Family Medicine
DX: I48.0 Paroxysmal atrial fibrillation (principal)
CPT/HCPCS: 36415; 85610

== ENCOUNTER → 2024-08-07 13:07 | Outpatient (REF) | payer MEDICARE, OTHER, SELFPAY ==
[2024-08-07 14:51] LABS: PT 36.2 Sec (11.4-14.6)
== END ==
LOC: RAD 13:07
PROVIDERS: ATTENDING PHYSICIAN Family Medicine; FAMILY PHYSICIAN Family Medicine; OTHER PHYSICIAN Obstetrics & Gynecology
DX: Z95.2 Presence of prosthetic heart valve (principal); I48.0 Paroxysmal atrial fibrillation; M25.512 Pain in left shoulder
CPT/HCPCS: 36415; 73030; 85610

== ENCOUNTER → 2024-08-14 12:19 | Outpatient (REF) | payer MEDICARE, OTHER, SELFPAY ==
[2024-08-14 13:42] LABS: PT 33.9 Sec (11.4-14.6)
== END ==
LOC: REG 12:19
PROVIDERS: ATTENDING PHYSICIAN Internal Medicine Cardiovascular Disease; FAMILY PHYSICIAN Family Medicine
DX: Z95.2 Presence of prosthetic heart valve (principal)
CPT/HCPCS: 36415; 85610

== ENCOUNTER → 2024-08-23 08:52 | Outpatient (REF) | payer MEDICARE, OTHER, SELFPAY ==
[2024-08-23 10:08] LABS: INR 3.24; PT 32.9 Sec (11.4-14.6)
== END ==
LOC: REG 08:52
PROVIDERS: ATTENDING PHYSICIAN Internal Medicine Cardiovascular Disease; FAMILY PHYSICIAN Family Medicine
DX: Z95.2 Presence of prosthetic heart valve (principal)
CPT/HCPCS: 36415; 85610

== ENCOUNTER → 2024-08-28 09:11 | Outpatient (REF) | payer MEDICARE, OTHER, SELFPAY ==
[2024-08-28 10:21] LABS: INR 2.81; PT 30.0 Sec (11.4-14.6)
== END ==
LOC: REG 09:11
PROVIDERS: ATTENDING PHYSICIAN Internal Medicine Cardiovascular Disease; FAMILY PHYSICIAN Family Medicine
DX: Z95.2 Presence of prosthetic heart valve (principal); I48.0 Paroxysmal atrial fibrillation
CPT/HCPCS: 36415; 85610

== ENCOUNTER → 2024-09-25 08:05 | Outpatient (REF) | payer MEDICARE, OTHER, SELFPAY ==
[2024-09-25 09:00] LABS: PT 60.1 Sec (11.4-14.6)
[2024-09-25 10:00] LABS: INR 7.04
== END ==
LOC: REG 08:05
PROVIDERS: ATTENDING PHYSICIAN Internal Medicine Cardiovascular Disease; FAMILY PHYSICIAN Family Medicine; REFERRING PHYSICIAN Surgery
DX: N40.1 Benign prostatic hyperplasia with lower urinary tract symptoms (principal); Z95.2 Presence of prosthetic heart valve
CPT/HCPCS: 36415; 84153; 84154; 85610

== ENCOUNTER → 2024-09-27 08:53 | Outpatient (REF) | payer MEDICARE, OTHER, SELFPAY ==
[2024-09-27 10:04] LABS: INR 3.89; PT 37.8 Sec (11.4-14.6)
== END ==
LOC: REG 08:53
PROVIDERS: ATTENDING PHYSICIAN Internal Medicine Cardiovascular Disease; FAMILY PHYSICIAN Family Medicine
DX: Z95.2 Presence of prosthetic heart valve (principal); I48.0 Paroxysmal atrial fibrillation
CPT/HCPCS: 36415; 85610

== ENCOUNTER → 2024-10-02 13:00 | Outpatient (REF) | payer MEDICARE, OTHER, SELFPAY ==
[2024-10-02 13:29] LABS: INR 2.25; PT 25.3 Sec (11.4-14.6)
== END ==
LOC: REG 13:00
PROVIDERS: ATTENDING PHYSICIAN Internal Medicine Cardiovascular Disease; FAMILY PHYSICIAN Family Medicine
DX: Z95.2 Presence of prosthetic heart valve (principal); I48.0 Paroxysmal atrial fibrillation
CPT/HCPCS: 36415; 85610

== ENCOUNTER → 2024-10-08 09:04 | Outpatient (REF) | payer MEDICARE, OTHER, SELFPAY ==
[2024-10-08 09:51] LABS: INR 2.70; PT 28.6 Sec (11.4-14.6)
== END ==
LOC: REG 09:04
PROVIDERS: ATTENDING PHYSICIAN Internal Medicine Cardiovascular Disease; FAMILY PHYSICIAN Family Medicine
DX: Z95.2 Presence of prosthetic heart valve (principal); I48.0 Paroxysmal atrial fibrillation
CPT/HCPCS: 36415; 85610

== ENCOUNTER → 2024-10-15 09:07 | Outpatient (REF) | payer MEDICARE, OTHER, SELFPAY ==
[2024-10-15 10:10] LABS: INR 3.37; PT 33.9 Sec (11.4-14.6)
== END ==
LOC: REG 09:07
PROVIDERS: ATTENDING PHYSICIAN Internal Medicine Cardiovascular Disease; FAMILY PHYSICIAN Family Medicine
DX: Z95.2 Presence of prosthetic heart valve (principal); I48.0 Paroxysmal atrial fibrillation
CPT/HCPCS: 36415; 85610

== ENCOUNTER → 2024-10-22 09:28 | Outpatient (REF) | payer MEDICARE, OTHER, SELFPAY ==
[2024-10-22 10:15] LABS: INR 2.55; PT 27.4 Sec (11.4-14.6)
== END ==
LOC: REG 09:28
PROVIDERS: ATTENDING PHYSICIAN Internal Medicine Cardiovascular Disease; FAMILY PHYSICIAN Family Medicine
DX: Z95.2 Presence of prosthetic heart valve (principal); I48.0 Paroxysmal atrial fibrillation
CPT/HCPCS: 36415; 85610

== ENCOUNTER → 2024-10-29 14:21 | Outpatient (REF) | payer MEDICARE, OTHER, SELFPAY ==
[2024-10-29 14:54] LABS: INR 2.68; PT 28.5 Sec (11.4-14.6)
== END ==
LOC: REG 14:21
PROVIDERS: ATTENDING PHYSICIAN Internal Medicine Cardiovascular Disease; FAMILY PHYSICIAN Family Medicine
DX: Z95.2 Presence of prosthetic heart valve (principal); I48.0 Paroxysmal atrial fibrillation
CPT/HCPCS: 36415; 85610

== ENCOUNTER → 2024-11-26 09:49 | Outpatient (REF) | payer MEDICARE, OTHER, SELFPAY ==
[2024-11-26 11:09] LABS: INR 4.13; PT 39.5 Sec (11.4-14.6)
== END ==
LOC: REG 09:49
PROVIDERS: ATTENDING PHYSICIAN Internal Medicine Cardiovascular Disease; FAMILY PHYSICIAN Family Medicine
DX: Z95.2 Presence of prosthetic heart valve (principal); I48.0 Paroxysmal atrial fibrillation
CPT/HCPCS: 36415; 85610

== ENCOUNTER → 2024-12-02 12:03 | Outpatient (REF) | payer MEDICARE, OTHER, SELFPAY ==
[2024-12-02 18:54] LABS: INR 2.08; PT 23.5 Sec (11.4-14.6)
== END ==
LOC: RAD 12:03
PROVIDERS: ATTENDING PHYSICIAN Internal Medicine Cardiovascular Disease; FAMILY PHYSICIAN Family Medicine
DX: I48.0 Paroxysmal atrial fibrillation (principal); Z95.2 Presence of prosthetic heart valve
CPT/HCPCS: 36415; 85610

== ENCOUNTER → 2024-12-10 10:40 | Outpatient (REF) | payer MEDICARE, OTHER, SELFPAY ==
[2024-12-10 12:08] LABS: INR 2.97; PT 30.8 Sec (11.4-14.6)
== END ==
LOC: REG 10:40
PROVIDERS: ATTENDING PHYSICIAN Internal Medicine Cardiovascular Disease
DX: Z95.2 Presence of prosthetic heart valve (principal); I48.0 Paroxysmal atrial fibrillation
CPT/HCPCS: 36415; 85610

== ENCOUNTER → 2024-12-17 11:24 | Outpatient (REF) | payer MEDICARE, OTHER, SELFPAY ==
[2024-12-17 12:50] LABS: INR 2.15; PT 24.1 Sec (11.4-14.6)
== END ==
LOC: REG 11:24
PROVIDERS: ATTENDING PHYSICIAN Internal Medicine Cardiovascular Disease; FAMILY PHYSICIAN Family Medicine
DX: I48.0 Paroxysmal atrial fibrillation (principal)
CPT/HCPCS: 36415; 85610

== ENCOUNTER → 2024-12-24 14:53 | Outpatient (REF) | payer MEDICARE, OTHER, SELFPAY ==
[2024-12-24 15:44] LABS: INR 2.86; PT 29.9 Sec (11.4-14.6)
== END ==
LOC: REG 14:53
PROVIDERS: ATTENDING PHYSICIAN Internal Medicine Cardiovascular Disease
DX: I48.0 Paroxysmal atrial fibrillation (principal)
CPT/HCPCS: 36415; 85610

== ENCOUNTER → 2024-12-30 11:46 | Outpatient (REF) | payer MEDICARE, OTHER, SELFPAY ==
[2024-12-30 12:58] LABS: INR 2.48; PT 26.9 Sec (11.4-14.6)
== END ==
LOC: REG 11:46
PROVIDERS: ATTENDING PHYSICIAN Surgery; FAMILY PHYSICIAN Family Medicine; REFERRING PHYSICIAN Internal Medicine Cardiovascular Disease
DX: R97.20 Elevated prostate specific antigen [PSA] (principal); Z95.2 Presence of prosthetic heart valve
CPT/HCPCS: 36415; 84153; 84154; 85610

== ENCOUNTER → 2025-01-06 10:57 | Outpatient (REF) | payer MEDICARE, OTHER, SELFPAY ==
[2025-01-06 12:18] LABS: INR 3.09; PT 31.7 Sec (11.4-14.6)
== END ==
LOC: REG 10:57
PROVIDERS: ATTENDING PHYSICIAN Internal Medicine Cardiovascular Disease; FAMILY PHYSICIAN Family Medicine
DX: Z95.2 Presence of prosthetic heart valve (principal); I48.0 Paroxysmal atrial fibrillation
CPT/HCPCS: 36415; 85610

== ENCOUNTER → 2025-01-22 08:49 | Outpatient (REF) | payer MEDICARE, OTHER, SELFPAY ==
[2025-01-22 09:40] LABS: INR 3.07; PT 32.0 Sec (11.4-14.6)
== END ==
LOC: REG 08:49
PROVIDERS: ATTENDING PHYSICIAN Internal Medicine Cardiovascular Disease; FAMILY PHYSICIAN Family Medicine
DX: I48.0 Paroxysmal atrial fibrillation (principal)
CPT/HCPCS: 36415; 85610

== ENCOUNTER → 2025-02-18 11:45 | Outpatient (REF) | payer MEDICARE, OTHER, SELFPAY ==
[2025-02-18 13:14] LABS: INR 2.44; PT 26.7 Sec (11.4-14.6)
== END ==
LOC: REG 11:45
PROVIDERS: ATTENDING PHYSICIAN Internal Medicine Cardiovascular Disease; FAMILY PHYSICIAN Family Medicine
DX: Z95.2 Presence of prosthetic heart valve (principal)
CPT/HCPCS: 36415; 85610